=== PATIENT | male | born 1950 | race Hispanic/Latino ===

== ENCOUNTER 2019-02-08 10:10 | Emergency (ER) | payer OTHER ==
[2019-02-08] MEDS ORDERED: IBUPROFEN 200 MG TAB PO ONE (11:04)
[2019-02-08] MEDS ORDERED: TETANUS & DIPHTHERIA TOX,ADULT 0.5 ML VIAL ONE (11:04)
[2019-02-08] MEDS ORDERED: LIDOCAINE 1% MPF 5 ML VIAL ONE (11:04)
--- NOTE | 2019-02-08 12:00 | RAD REPORT ---
EXAM DESCRIPTION: RAD - Foot Left 3 View - 02/08/2019 11:49 am CLINICAL HISTORY: Left Foot pain status post fall FINDINGS: The fifth middle phalanx is small and may be fused with the fifth distal phalanx. There appears to be a moderately displaced fracture which extends intra-articularly. No obvious dislo cation seen
--- NOTE | 2019-02-08 12:04 | RAD REPORT ---
EXAM DESCRIPTION: RAD - Lumbar Spine 3 Views - 02/08/2019 11:49 am CLINICAL HISTORY: Back pain FINDINGS: The alignment of the lumbar spine is satisfactory. No fracture or dislocation is seen. The sacroiliac joints probably are fused indicative of ankylosing spondylitis Mild to moderate spondylosis involves the lumbar spine
--- NOTE | 2019-02-08 12:06 | RAD REPORT ---
EXAM DESCRIPTION: RAD - Thoracic Spine Ap/Lat - 02/08/2019 11:49 am CLINICAL HISTORY: Back pain FINDINGS: The alignment of the thoracic spine is satisfactory. No fracture is seen. The bones are osteoporotic. Fusing of anterior osteophytes of the thoracic spine likely indicates ankylosing spondylitis.
--- NOTE | 2019-02-08 12:48 | EDPHYS ---
Physician Documentation [facility] Name: Ben Salamanca Age: 69 yrs Sex: Male : 1950 Arrival Date: 02/08/2019 Time: 10:13 Bed 20 Private MD: ED Physician Neelam Oropeza HPI: 02/08 10:52 This 69 yrs old Male presents to ER via Ambulatory with complaints of Toe ma2 Injury. 10:52 The complaints affect the left foot. Onset: The symptoms/episode began/occurred ma2 suddenly, 1 hour(s) ago. Associated signs and symptoms: Pertinent negatives: fever, numbness, tingling, vomiting. Severity of symptoms: At their worst the symptoms were very mild, in the emergency department the symptoms are unchanged. tripped and fell back nascimento sustained left 5th toe injury, laceration, and has back pain no head trauma or neck pain. Historical: - Allergies: 10:41 No Known Allergies; ss - PMHx: 10:41 Hypertension; kidney disease; Hyperlipidemia; ss - Immunization history:: Adult Immunizations up to date. - Social history:: Smoking status: Patient/guardian denies using tobacco, Patient/guardian denies using alcohol, street drugs, The patient lives with family. - Ebola Screening: : Patient denies exposure to infectious person Patient denies travel to an Ebola-affected area in the 21 days before illness onset. - Family history:: not pertinent. ROS: 10:52 MS/extremity: Positive for injury or acute deformity, Negative for deformity, ma2 laceration, pain, tenderness, warmth. 10:52 Constitutional: Negative for fever, chills, and weight loss, Eyes: Negative for injury, pain, redness, and discharge, ENT: Negative for injury, pain, and discharge, Neck: Negative for injury, pain, and swelling, Cardiovascular: Negative for chest pain, palpitations, and edema, Respiratory: Negative for shortness of breath, cough, wheezing, and pleuritic chest pain, Abdomen/GI: Negative for abdominal pain, nausea, diarrhea, and constipation, MS/Extremity: Negative for injury and deformity, Skin: Negative for injury, rash, and discoloration, Neuro: Negative for headache, weakness, numbness, tingling, and seizure, Psych: Negative for depression, anxiety, suicide ideation, homicidal ideation, and hallucinations, Allergy/Immunology: Negative for hives, rash, and allergies. 10:52 Back: Positive for injury or acute deformity, pain with movement, Negative for acute changes. Exam: 10:52 Constitutional: This is a well developed, well nourished patient who is awake, alert, ma2 and in no acute distress. Head/Face: Normocephalic, atraumatic. Eyes: Pupils equal round and reactive to light, extra-ocular motions intact. Lids and lashes normal. Conjunctiva and sclera are non-icteric and not injected. Cornea within normal limits. Periorbital areas with no swelling, redness, or edema. ENT: Nares patent. No nasal discharge, no septal abnormalities noted. Tympanic membranes are normal and external auditory canals are clear. Oropharynx with no redness, swelling, or masses, exudates, or evidence of obstruction, uvula midline. Mucous membranes moist. Neck: Trachea midline, no thyromegaly or masses palpated, and no cervical lymphadenopathy. Supple, full range of motion without nuchal rigidity, or vertebral point tenderness. No Meningismus. Chest/axilla: Normal chest wall appearance and motion. Nontender with no deformity. No lesions are appreciated. Cardiovascular: Regular rate and rhythm with a normal S1 and S2. No gallops, murmurs, or rubs. Normal PMI, no JVD. No pulse deficits. Respiratory: Lungs have equal breath sounds bilaterally, clear to auscultation and percussion. No rales, rhonchi or wheezes noted. No increased work of breathing, no retractions or nasal flaring. Abdomen/GI: Soft, non-tender, with normal bowel sounds. No distension or tympany. No guarding or rebound. No evidence of tenderness throughout. Back: No spinal tenderness. No costovertebral tenderness. Full range of motion. Skin: Warm, dry with normal turgor. Normal color with no rashes, no lesions, and no evidence of cellulitis. MS/ Extremity: Pulses equal, no cyanosis. Neurovascular intact. Full, normal range of motion. Neuro: Awake and alert, GCS 15, oriented to person, place, time, and situation. Cranial nerves II-XII grossly intact. Motor strength 5/5 in all extremities. Sensory grossly intact. Cerebellar exam normal. Normal gait. 10:52 Back: pain, that is very mild, CVA tenderness, that is mild, vertebral tenderness, is appreciated at T9 and T10, muscle spasm, is appreciated in the right mid back. 10:52 Musculoskeletal/extremity: Extremities: all appear grossly normal, with no appreciated pain with palpation, ROM: intact in all extremities, Circulation is intact in all extremities. Sensation intact. Compartment Syndrome exam of affected extremity: unable to examine. left 5th toe laceration anterior 1 cm. Vital Signs: 10:41 BP 162 / 72; Pulse 55; Resp 17; Temp 98.0(O); Pulse Ox 100% on R/A; Weight 108.86 kg; ss Height 5 ft. 8 in. (172.72 cm); Pain 8/10; 12:26 Pulse 51; Resp 17; Temp 98.4; Pulse Ox 99% on R/A; mh5 10:41 Body Mass Index 36.49 (108.86 kg, 172.72 cm) ss Laceration: 10:52 Wound Repair of 1cm ( 0.4in ) subcutaneous laceration to left foot. Distal ma2 neuro/vascular/tendon intact. Anesthesia: Local anesthetic administered with 5 mls of 1% lidocaine. Wound prep: Moderate cleansing, Wound explored, Copious irrigation. Skin closed with 3 1-0 Katie using simple sutures and sterile technique. Dressed with Bacitracin. Patient tolerated well. MDM: 10:31 Patient medically screened. ma2 10:52 Differential diagnosis: fracture, sprain. Data reviewed: vital signs, nurses notes. ma2 Counseling: I had a detailed discussion with the patient and/or guardian regarding: the historical points, exam findings, and any diagnostic results supporting the discharge/admit diagnosis, the presence of at least one elevated blood pressure reading (>120/80) during this emergency department visit, the need for outpatient follow up. Response to treatment: the patient's symptoms have markedly improved after treatment. 02/08 10:45 Order name: Foot Left 3 View XRAY: 5th toe partial amputation; Complete Time: 12:23 ma2 02/08 10:45 Order name: Lumbar Spine (3 Views) XRAY; Complete Time: 12:23 ma2 02/08 10:45 Order name: Spine Thoracic Ap/Lat XRAY; Complete Time: 12:23 ma2 02/08 10:31 Order name: NPO; Complete Time: 10:48 ma2 02/08 12:25 Order name: Post-op shoe; Complete Time: 12:50 ma2 Administered Medications: 10:58 Drug: Tetanus-Diphtheria Toxoid Adult 0.5 ml {Gusset Maker: [employer]. Exp: ss 11/24/2020. Lot #: [id number]. } Route: IM; Site: right deltoid; 12:29 Follow up: Response: No adverse reaction ss 10:58 Drug: Motrin 400 mg Route: PO; ss 12:28 Follow up: Response: No adverse reaction; Pain is unchanged, physician notified; Pain ss is unchanged, physician notified, pain is unchanged. pt does not like the way pain medication makes him feel. Refusese additional medicaiton. 12:20 Drug: Lidocaine (1 %) 10 mg {Note: approximatley 2 mL administered to wound by Dr. alfred yee..} Volume: 5 ml; Route: Infiltration; Disposition: 02/08/19 12:48 Discharged to Home. Impression: Partial traumatic amputation of one left lesser toe. - Condition is Stable. - Prescriptions for Clindamycin HCl 300 mg Oral Capsule - take 1 capsule by ORAL route every 6 hours for 10 days; 40 capsule. Augmentin 875- 125 mg Oral Tablet - take 1 tablet by ORAL route every 12 hours for 10 days; 20 tablet. Tylenol- Codeine #3 300-30 mg Oral Tablet - take 2 tablet by ORAL route every 6 hours As needed; 30 tablet. Zofran 4 mg Oral Tablet - take 1 tablet by ORAL route every 12 hours As needed; 20 tablet. Cyclobenzaprine 5 mg Oral Tablet - take 1 tablet by ORAL route 3 times per day As needed; 15 tablet. - Medication Reconciliation Form, Thank You Letter, Antibiotic Education, Prescription Opioid Use form. - Follow up: Private Physician; When: Tomorrow; Reason: Continuance of care. Follow up: Blas Dolan MD; When: Tomorrow; Reason: Continuance of care. - Notes: remove katie in 2 weeks Signatures: Dispatcher [employer] EDMS Debbi Meyer RN RN ss Amy Cuellar RN RN tw2 Neelam Oropeza MD MD ma2 Corrections: (The following items were deleted from the chart) 12:48 12:48 02/08/2019 12:48 Discharged to Home. Impression: Partial traumatic amputation of ma2 one left lesser toe. Condition is Stable. Prescriptions for Clindamycin HCl 300 mg Oral Capsule - take 1 capsule by ORAL route every 6 hours for 10 days; 40 capsule. and Forms are Medication Reconciliation Form, Thank You Letter, Antibiotic Education, Prescription Opioid Use. Follow up: Private Physician; When: Tomorrow; Reason: Continuance of care. ma2 13:03 12:48 02/08/2019 12:48 Discharged to Home. Impression: Partial traumatic amputation of tw2 one left lesser toe. Condition is Stable. Prescriptions for Clindamycin HCl 300 mg Oral Capsule - take 1 capsule by ORAL route every 6 hours for 10 days; 40 capsule. and Forms are Medication Reconciliation Form, Thank You Letter, Antibiotic Education, Prescription Opioid Use. Follow up: Private Physician; When: Tomorrow; Reason: Continuance of care. Follow up: Dr. Blas Dolan; When: Tomorrow; Reason: Continuance of care. ma2
--- NOTE | 2019-02-08 12:48 | ER ---
Nurse's Notes [facility] Name: Ben Salamanca Age: 69 yrs Sex: Male : 1950 Arrival Date: 02/08/2019 Time: 10:13 Bed 20 Private MD: Diagnosis: Partial traumatic amputation of one left lesser toe Presentation: 02/08 10:38 Presenting complaint: Patient states: Fell about 1 hour ago in camper. reports ss there are floor vents and it must have been was caused a laceration to L fifth digit. Pt also c/o low -mid back pain. Transition of care: patient was not received from another setting of care. Onset of symptoms was February 08, 2019. Risk Assessment: Do you want to hurt yourself or someone else? Patient reports no desire to harm self or others. Initial Sepsis Screen: Does the patient meet any 2 criteria? No. Patient's initial sepsis screen is negative. Does the patient have a suspected source of infection? No. Patient's initial sepsis screen is negative. Care prior to arrival: None. 10:38 Method Of Arrival: Ambulatory ss 10:38 Acuity: BEBO 4 ss Historical: - Allergies: 10:41 No Known Allergies; ss - PMHx: 10:41 Hypertension; kidney disease; Hyperlipidemia; ss - Immunization history:: Adult Immunizations up to date. - Social history:: Smoking status: Patient/guardian denies using tobacco, Patient/guardian denies using alcohol, street drugs, The patient lives with family. - Ebola Screening: : Patient denies exposure to infectious person Patient denies travel to an Ebola-affected area in the 21 days before illness onset. - Family history:: not pertinent. Screenin:43 Abuse screen: Denies threats or abuse. Denies injuries from another. Nutritional ss screening: No deficits noted. Tuberculosis screening: Never had TB. Fall Risk None identified. Assessment: 10:43 General: Appears uncomfortable, Behavior is calm, cooperative, Denies feeling ill, ss fatigue. Pain: Complains of pain in low-mid back, L fifth digit Pain currently is 8 out of 10 on a pain scale. Quality of pain is described as aching, tender, Is continuous. Neuro: Level of Consciousness is awake, alert, obeys commands, Oriented to person, place, time, situation, Speech is normal, Pupils are PERRLA. Cardiovascular: Capillary refill < 3 seconds is brisk in bilateral fingers Patient's skin is warm and dry. Respiratory: Airway is patent Respiratory effort is even, unlabored, Respiratory pattern is regular, symmetrical. GI: Patient currently denies abdominal pain, nausea, vomiting. : No signs and/or symptoms were reported regarding the genitourinary system. EENT: Nares are clear Oral mucosa is moist. Throat is clear. Derm: Skin is intact, is healthy with good turgor, Skin is dry, Skin is pink, warm \T\ dry. normal. Musculoskeletal: Circulation, motion, and sensation intact. Range of motion: intact in all extremities, Swelling absent. Injury Description: Laceration sustained to left fifth toe is 0.5 to 2.5 cm long, not bleeding, was sustained 30-60 minutes ago. 11:15 Reassessment: Pt to XRAY VIA wheelchair. ss 13:02 Reassessment: Patient appears in no apparent distress at this time. Patient and/or ss family updated on plan of care and expected duration. Pain level reassessed. Vital Signs: 10:41 BP 162 / 72; Pulse 55; Resp 17; Temp 98.0(O); Pulse Ox 100% on R/A; Weight 108.86 kg; ss Height 5 ft. 8 in. (172.72 cm); Pain 8/10; 12:26 Pulse 51; Resp 17; Temp 98.4; Pulse Ox 99% on R/A; mh5 10:41 Body Mass Index 36.49 (108.86 kg, 172.72 cm) ED Course: 10:13 Patient arrived in ED. rg4 10:31 Neelam Oropeza MD is Attending Physician. ma2 10:38 Debbi Meyer RN is Primary Nurse. ss 10:39 Triage completed. ss 10:41 Arm band placed on right wrist. ss 10:43 Patient has correct armband on for positive identification. Bed in low position. Call ss light in reach. 10:43 Wound care: to laceration located on left fifth toe was cleaned with with Hibiclens and ss NS, Patient tolerated well. 11:49 Foot Left 3 View XRAY: 5th toe partial amputation In Process Unspecified. EDMS 11:49 Lumbar Spine (3 Views) XRAY In Process Unspecified. EDMS 11:49 Spine Thoracic Ap/Lat XRAY In Process Unspecified. EDMS 12:48 Blas Dolan MD is Referral Physician. ma2 12:49 Wound care: WOUND DRESSING AND WALKING SHOE COMPLETED. 5 13:02 No provider procedures requiring assistance completed. Patient did not have IV access ss during this emergency room visit. 13:03 Ortho shoe applied to left foot. ss Administered Medications: 10:58 Drug: Tetanus-Diphtheria Toxoid Adult 0.5 ml {Food Counter Attendant: [employer]. Exp: ss 11/24/2020. Lot #: [id number]. } Route: IM; Site: right deltoid; 12:29 Follow up: Response: No adverse reaction ss 10:58 Drug: Motrin 400 mg Route: PO; ss 12:28 Follow up: Response: No adverse reaction; Pain is unchanged, physician notified; Pain ss is unchanged, physician notified, pain is unchanged. pt does not like the way pain medication makes him feel. Refusese additional medicaiton. 12:20 Drug: Lidocaine (1 %) 10 mg {Note: approximatley 2 mL administered to wound by Dr. alfred yee..} Volume: 5 ml; Route: Infiltration; Outcome: 12:48 Discharge ordered by . ma2 13:02 Discharged to home via wheelchair, with family. 13:02 Condition: good 13:02 Discharge instructions given to patient, family, Instructed on discharge instructions, follow up and referral plans. medication usage, wound care, Demonstrated understanding of instructions, follow-up care, medications, wound care. 13:03 Patient left the ED. tw2 Signatures: Dispatcher [employer] Debbi Loaiza RN RN ss Wise, Tara, RN RN tw2 Ryann Levin Maria Neelam Marinelli MD MD vt2
== END 2019-02-08 13:03 | disposition home or self-care (01) ==
LOC: ER 10:10
PROC: 0JQR0ZZ Repair Left Foot Subcutaneous Tissue and Fascia, Open Approach (ICD-10-PCS; principal; 2019-02-08)
DX: S98.142A Partial traumatic amputation of one left lesser toe, initial encounter (principal); W01.0XXA Fall on same level from slipping, tripping and stumbling without subsequent striking against object, initial encounter; Y93.01 Activity, walking, marching and hiking; Y92.89 Other specified places as the place of occurrence of the external cause; Z23 Encounter for immunization; I10 Essential (primary) hypertension
CPT/HCPCS: 72070; 72100; 90471; 90714; 99284